=== PATIENT | female | born 1940 | race Caucasian/White ===

== ENCOUNTER 2017-07-06 10:47 | Outpatient (CLI) | payer MEDICARE ==
--- NOTE | 2017-07-06 11:33 | MMO ---
BILATERAL SCREENING MAMMOGRAM: DATE: 07/06/17 HISTORY: 76-year-old female for screening mammography. COMPARISON: 01/06/16, 12/16/14, 12/13/13, 12/12/12. FINDINGS: Bilateral MLO and CC views of the breasts show scattered fibroglandular breast tissue. Benign-appear ing calcifications are seen in both breasts. There is no evidence of suspicious mass, suspicious clu ster of microcalcifications, or area of architectural distortion. Interpretation of this mammogram was performed with the assistance of computer-aided detection. IMPRESSION: BIRADS 2: Benign Finding(s) Annual screening mammography is recommended. POS: [facility]
== END 2017-07-06 10:48 | disposition home or self-care (01) ==
LOC: SCSMAMMO 10:47
PROVIDERS: ATTEND Internal Medicine
DX: Z12.31 Encounter for screening mammogram for malignant neoplasm of breast (principal)
CPT/HCPCS: 77067; G0202

== ENCOUNTER 2018-05-01 15:19 | Outpatient (CLI) | payer MEDICARE, OTHER ==
[~2018-05-01 15:19] MED LIST: Iopamidol 370 76% 100 ML VIAL ONE
--- NOTE | 2018-05-01 17:13 | CT ---
CTA HEAD WITH AND WITHOUT CONTRAST: HISTORY: Stroke. Dizziness. Syncope. TECHNIQUE: Noncontrast enhanced CT images of the brain obtained, followed by contrast enhanced CTA images of the brain and carotid arteries, and 2D and 3D reconstructed images of the carotid and intracranial struc tures obtained. FINDINGS: Noncontrast enhanced CT images demonstrate some heterogeneity noted in the left temporal occipital re gion. This area demonstrates heterogeneous enhancement on the contrast enhanced images and is concerning fo r a possible left temporal occipital enhancing mass. Correlation with MRI is recommended. The aortic arch is unremarkable. The right brachiocephalic artery, as well as the right and left com mon carotid arteries are unremarkable. Normal flow is seen in the internal carotid arteries bilatera lly. Normal flow is seen in the right and left vertebral arteries. The basilar artery is patent. Good flow is seen in the right and left middle cerebral arteries, as well as the anterior cerebral ar randa and the posterior cerebral arteries. IMPRESSION: Area of heterogeneous enhancement in the left temporal occipital region. Malignancy cannot be exclud ed. Correlate with pre and post contrast enhanced magnetic resonance images of the brain. POS: [facility]
== END 2018-05-01 15:20 | disposition home or self-care (01) ==
LOC: CT 15:19
PROVIDERS: ATTEND Neurological Surgery
DX: I63.9 Cerebral infarction, unspecified (principal); R93.0 Abnormal findings on diagnostic imaging of skull and head, not elsewhere classified
CPT/HCPCS: 70496; 70498; 82565

== ENCOUNTER 2018-06-06 13:43 | Outpatient (CLI) | payer MEDICARE, OTHER ==
[~2018-06-06 13:43] MED LIST changes: +Gadobenate Dimeglumine 529 MG/1 ML (20ML VIAL) ONE; -Iopamidol 370 76% 100 ML VIAL ONE
--- NOTE | 2018-06-06 16:37 | MRI ---
BRAIN MRI WITH AND WITHOUT CONTRAST 06/06/18 CLINICAL INDICATIONS: History of dizziness and stroke. Abnormal, heterogeneous density documented on prior CT angiogram. Ex amination with recommendations for followup brain MRI. FINDINGS: There is diffuse abnormal signal, with resultant morphologic distortion and effacement of regional co rtex of the left temporal and left occipital lobes. There is marked heterogeneous, irregular, multifo leann enhancement of this region with internal areas of nonenhancement compatible with necrosis, and kulkarni rrounded by multiple areas of satellite nodularity. A separate region of cortical based enhancement i nvolves the posteromedial left occipital lobe abutting the posterior aspect of the interhemispheric f efrain and the superior sagittal sinus. The mass is infiltrating in morphology as well as multifocal as discussed above making discrete measurement perimeters difficult to obtain, although does occupy the near entirety of the AP length of the left temporal lobe with relative sparing of the anterior pole a nd the lateral and posterior periphery of the temporal lobe, and thus, giving its preferential medial involvment of the temporal lobe, this does result in effacement of the temporal horn of the left lat eral ventricle, and therefore transependymal spread of malignancy is likely present on the bases of t his exam. There is no significant shift of the midline. No obstructive hydrocephalus. No hemorrhagic susceptibility. Multifocal areas of restricted diffusion are present which conform to the above descr ibed abnormal areas of tumoral enhancement. IMPRESSION: Abnormal infiltrative, heterogeneously enhancing mass primarily situated at the medial left temporal lobe and involving the left occipital lobe, most consistent with high grade malignancy, such as gliob lastoma multiforme. POS: [facility]
== END 2018-06-06 13:44 | disposition home or self-care (01) ==
LOC: TBSIIMAG 13:43
PROVIDERS: ATTEND Neurological Surgery
DX: I63.9 Cerebral infarction, unspecified (principal); R22.0 Localized swelling, mass and lump, head
CPT/HCPCS: 70553; 82565; A9579

== ENCOUNTER 2018-06-12 07:05 | Inpatient (IN) | payer MEDICARE, OTHER ==
[2018-06-12 07:56] LABS: #Basophils 0.1 thou/uL (0.0-0.2); #Eosinphils 0.1 thou/uL (0.0-0.7); #Lymphocytes 1.5 thou/uL (1.20-3.40); #Monocytes 0.7 thou/uL (0.11-0.59); #Neutrophils 5.2 thou/uL (1.40-6.50); %Basophils 0.7 % (0.0-1.0); %Eosinophils 0.8 % (0.0-10.0); %Lymphocytes 20.3 % (21.0-51.0); %Monocytes 9.1 % (0.0-10.0); %Neutrophils 69.1 % (42.0-75.0); Hemoglobin 15.1 g/dL (12.0-16.0); Mean Corpuscular HGB CONC 31.1 g/dL (32.0-36.0); Mean Corpuscular Hemoglobin 28.4 pg (27.0-31.0); Mean Corpuscular Volume 91.1 fL (78.0-98.0); Mean Platelet Volume 6.8 fL (7.4-10.4); Platelet Count 287 thou/uL (130-400); RBC Distribution Width 11.6 % (11.5-14.5); Red Blood Cell (RBC) Count 5.32 mill/uL (4.20-5.40); White Blood Cell (WBC) Count 7.5 thou/uL (4.8-10.8)
[2018-06-12 08:26] LABS: Anion Gap 13 mmol/L (10-20); BUN (Urea Nitrogen) 16 mg/dL (9.8-20.1); Calc. Creatinine Clearance 64 mL/min (70-130); Calcium 9.6 mg/dL (7.8-10.44); Carbon Dioxide 25 mmol/L (23-31); Chloride 106 mmol/L (98-107); Estimated GFR-MDRD 66; Glucose 120 mg/dL (83-110); Potassium 3.5 mmol/L (3.5-5.1); Sodium 140 mmol/L (136-145)
[2018-06-12] MEDS ORDERED: Bacitracin Zinc Ointment 30 gm TUBE ONE (08:36)
[2018-06-12] MEDS ORDERED: Fentanyl 100 MCG/2 ML VIAL ONE (08:47)
[2018-06-12] MEDS ORDERED: Midazolam HCl 2 mg/2 ml Vial ONE (08:47)
[2018-06-12] MEDS ORDERED: CEFAZOLIN/Water 2 GM/20 ML SYRINGE ONE (08:53)
[2018-06-12] MEDS ORDERED: Ondansetron HCl/PF 4 MG/2 ML Vial IVP PRN ×2 (10:41→12:39)
[2018-06-12] MEDS ORDERED: Promethazine HCl 25 MG/ML VIAL IM PRN ×2 (10:41→12:39)
[2018-06-12] MEDS ORDERED: Promethazine HCl 25 MG/ML VIAL SLOW IVP PRN (10:41)
--- NOTE | 2018-06-12 10:59 | OP ---
DATE OF PROCEDURE: 06/12/2018 SURGEON: Chava Palomino M.D. NURSE COLLEGE: Mikaela Walker PROCEDURE: Left temporoparietal brain biopsy, stereotactic navigation. PROCEDURE IN DETAIL: The patient was brought to the operating room and intubated. She was positione d in the right lateral decubitus position with the head fixed in the john head mechanic, exposing the left temporal region. Using the stereotactic navigation system, we registered appropriately and ninfa n our approach and carter hole. A linear incision was made and a bur hole placed in the left temporal region. Using stereotactic navigation, we placed a stereotactic needle to the planned target in the tumor. One specimen was sent for frozen section suggesting high grade glioma, four additional specim ens were sent for permanent pathologic examination. Irrigation was performed and no bleeding was daniela ntified. The needle was removed and the scalp was closed in anatomic layers.
[2018-06-12] MEDS ORDERED: hydrALAZINE 20 MG/ML VIAL SLOW IVP PRN (12:39)
[2018-06-12] MEDS ORDERED: Promethazine 25 MG TAB PO PRN (12:39)
[2018-06-12] MEDS ORDERED: Acetaminophen 325 MG TAB PO PRN (12:39)
[2018-06-12] MEDS ORDERED: Docusate 100 MG CAP PO PRN (12:39)
[2018-06-12] MEDS ORDERED: diphenhydrAMINE 50 MG CAP PO PRN (12:39)
[2018-06-12] MEDS ORDERED: HYDROcodone/Acetaminophen 10/325 mg Tablet PO PRN ×2 (12:39)
[2018-06-12] MEDS ORDERED: Labetalol HCl 100 MG/20 ML VIAL SLOW IVP PRN (12:39)
[2018-06-12] MEDS ORDERED: diphenhydrAMINE 50 MG/ML VIAL IVP PRN (12:39)
[2018-06-12] MEDS ORDERED: Mag-Al 1200 mg/1200 mg/30 ML UDCUP PO PRN (12:39)
[2018-06-12] MEDS ORDERED: Promethazine HCl 12.5 MG SUPP PR PRN (12:42)
[2018-06-12] MEDS ORDERED: Morphine 4 MG/ML VIAL SLOW IVP PRN (12:46)
[2018-06-12] MEDS: niMODipine 30 MG CAP PO SCH ×3 (13:05→20:00)
--- NOTE | 2018-06-12 14:20 | PRG ---
DATE OF SERVICE: 06/12/2018 PRIMARY CARE PHYSICIAN: Luke Baeza MD SUBJECTIVE: The patient denies any new complaints at this time. She underwent a left temporoparieta l brain biopsy. She denies any chest discomfort, shortness of breath, palpitations or new focal defi cit. Her daughter, Anne is at the bedside. PAST MEDICAL HISTORY: 1. Hypertension. 2. Hyperlipidemia. 3. Anxiety, depression. 4. Recently diagnosed brain tumor. PAST SURGICAL HISTORY: 1. Hysterectomy. 2. Cholecystectomy. CURRENT MEDICATIONS: Reviewed. OBJECTIVE: VITAL SIGNS: The patient is afebrile with a blood pressure of 136/62 in the PACU with heart rate of 90, O2 saturation 100% on room air. GENERAL: A 77-year-old female in no apparent distress. LUNGS: Clear to auscultation bilaterally, no wheezing, rales or rhonchi. HEART: S1, S2 present. Regular rate and rhythm. ABDOMEN: Soft, bowel sounds present. EXTREMITIES: No edema or calf tenderness. NEUROLOGIC: Grossly nonfocal. LABORATORY FINDINGS: 1. EKG by my review showed sinus rhythm with left axis deviation. 2. CBC showed WBC 7.5 with hemoglobin 15.1, hematocrit 48.4, platelet 287. Chemistries showed sodiu m 140, potassium 3.5, chloride 106, bicarbonate 25, BUN 16, creatinine 0.84. 3. MRI of the brain last week showed a left temporal lobe brain mass, most consistent with high grad e malignancy. IMPRESSION: 1. Status post left temporoparietal brain biopsy. 2. Hypertension. We will reduce Toprol dose to 25 mg daily while on nimodipine. We will also add p .r.n. antihypertensives. 3. Hyperlipidemia. We will continue Zetia. 4. Anxiety, depression. We will continue escitalopram 10 mg daily. 5. Chronic kidney disease stage 2. 6. Code status: FULL CODE. Surrogate decision maker: The patient makes her own decision with the help of her family. Thank you Dr. Palomino for this consultation. We will follow with you.
[2018-06-12 14:33] VITALS: BMI 27.5
[2018-06-12] MEDS ORDERED: PROPOFOL 200 MG/20 ML VIAL ONE (14:35)
[2018-06-12] MEDS ORDERED: ePHEDrine/0.9% NaCl/PF SYRINGE 50 mg/10 ml ONE (14:35)
[2018-06-12] MEDS ORDERED: Lidocaine 1% PF 5 ML VIAL ONE (14:35)
[2018-06-12] MEDS ORDERED: PHENYLEPHRINE-NS 100 MCG/ML 10 ML SYRINGE ONE (14:35)
[2018-06-12] MEDS ORDERED: Glycopyrrolate 0.2 MG/ML 5 ML SYRINGE ONE (14:35)
--- NOTE | 2018-06-12 15:39 | EKG ---
Test Reason : PREOP Blood Pressure : / mmHG Vent. Rate : 070 BPM Atrial Rate : 070 BPM P-R Int : 160 ms QRS Dur : 072 ms QT Int : 390 ms P-R-T Axes : 016 -35 020 degrees QTc Int : 421 ms Normal sinus rhythm Left axis deviation Inferior infarct , age undetermined Abnormal ECG Confirmed by KARLY CORADO, DR. Lester ([id number]) on 06/12/2018 3:39:33 PM Referred By: BRIANNE Confirmed By:DR. Trevon BRANDT MD
[2018-06-12] MEDS: CEFAZOLIN/Water 2 GM/20 ML SYRINGE SLOW IVP SCH (17:45)
[2018-06-12] MEDS: Sodium Chloride 0.9% 1,000 ML IV SCH (17:46)
[2018-06-13] MEDS: niMODipine 30 MG CAP PO SCH ×3 (01:04→10:44)
[2018-06-13] MEDS: CEFAZOLIN/Water 2 GM/20 ML SYRINGE SLOW IVP SCH (01:04)
[2018-06-13] MEDS: Sodium Chloride 0.9% 1,000 ML IV SCH (05:29)
--- NOTE | 2018-06-13 06:43 | DIS ---
DATE OF ADMISSION: 06/12/2018 DATE OF DISCHARGE: 06/13/2018 ATTENDING PHYSICIAN: Dr. Chava Palomino [facility] COURSE: The patient is a 77-year-old female evaluated recently in our office for progressive cognitive decline. Her MRI showed a large left temporal occipital mass was unclear fiona schneider. The patient was admitted yesterday and underwent left temporal stereotactic brain biopsy for fu rther evaluation of this lesion. Following the procedure she was transitioned to the ICU where she w as monitored closely overnight. Overnight, she had remained stable and had no postoperative complica tions. I am seeing the patient at the bedside. She is awake, alert, comfortable and requesting to g o home. The patient is sitting comfortably in bed in no acute distress. PERRLA. Extraocular movements intact . No focal neurologic deficits are appreciated. We will plan to dismiss the patient to home later today. I discussed home care and will plan to foll ow up with the patient on prescheduled appointment on 06/26/2018. I provided her with p.r.n. script for [facility].
[2018-06-13 07:46] VITALS: TEMP 98.8
--- NOTE | 2018-06-13 08:55 | CT ---
PRELIMINARY REPORT/[facility]/EMERGENTY AFTER-HOURS PROCEDURE CT Head Without Intravenous Contrast CLINICAL HISTORY: 77 years old, female; Screening exam; Prior surgery; Surgery date: Post-operative (0-2 days); Surgery type: S/P craniotomy TECHNIQUE: Axial computed tomography images of the head/brain without intravenous contrast. COMPARISON: CTA Angio Head W WO Con 05/01/2018 3:54 PM FINDINGS: Brain: Again seen is a heterogeneous mass involving the medial left temporal lobe and occipital suspi cious for tumor as seen on the previous exam. There are now punctate foci of air within the mass post eriorly and along the anterior margin in the temporal lobe related to the recent biopsy. There is moderate edema in the left temporal and occipital lobes. There is effacement of sulci and pa rtial effacement of left lateral ventricle. No other significant mass effect or midline shift. No int racranial hemorrhage. No significant white matter disease. Ventricles: See above. Bones/joints: There has been a small carter hole placed in the left temporal bone. No acute fracture. Soft tissues: There are surgical stephenie in the left temporal scalp. Vasculature: Carotid atherosclerotic calcification. Sinuses: Unremarkable as visualized. No acute sinusitis. Mastoid air cells: Unremarkable as visualized. No mastoid effusion. Orbits: The patient has had bilateral lens replacement surgery. IMPRESSION: Evidence of recent or old and probable biopsy. Correlate clinically. No acute hemorrhage. Thank you for allowing us to participate in the care of your patient. Dictated and Authenticated by: Akash Silva MD 06/13/2018 4:36 AM Central Time ([place] & [place]) FINAL REPORT CT BRAIN: HISTORY: Brain mass post biopsy. FINDINGS: Final report. Preliminary exam was performed by [facility]. I concur with the dictation from [facility]. Left parietotemporal mass is again seen. Postsu rgical biopsy changes noted. No evidence of acute intracranial hemorrhage is seen. IMPRESSION: I concur with the dictation from [facility]. POS: [facility]
[2018-06-13] MEDS ORDERED: Prevnar 13-Val Conj/PF 0.5 ML SYRINGE IM ONE (09:00)
[2018-06-13] MEDS ORDERED: Ezetimibe 10 MG TAB PO SCH (09:00)
[2018-06-13] MEDS ORDERED: Escitalopram Oxalate 10 mg Tablet PO SCH (09:00)
== END 2018-06-13 11:30 | disposition home or self-care (01) | DRG 55 ==
LOC: SURG A 07:05 → CCU 10:58 → EDSTATUS 12:21
PROVIDERS: ADMIT Neurological Surgery; ATTEND Neurological Surgery
PROC: 00B03ZX Excision of Brain, Percutaneous Approach, Diagnostic (ICD-10-PCS; principal; 2018-06-12)
DX: C71.9 Malignant neoplasm of brain, unspecified (principal); R41.81 Age-related cognitive decline; E78.5 Hyperlipidemia, unspecified; F41.9 Anxiety disorder, unspecified; F32.9 Major depressive disorder, single episode, unspecified; I12.9 Hypertensive chronic kidney disease with stage 1 through stage 4 chronic kidney disease, or unspecified chronic kidney disease; N18.2 Chronic kidney disease, stage 2 (mild)
CPT/HCPCS: 36415; 70450; 80048; 85025; 88307; 88331; 93005; 93010; J2001; J2250; J2704; J3010

== ENCOUNTER 2018-06-14 16:48 | Emergency (ER) | payer MEDICARE, OTHER ==
[2018-06-14 17:14] LABS: #Eosinphils 0.1 thou/uL (0.0-0.7); #Lymphocytes 2.1 thou/uL (1.20-3.40); #Neutrophils 6.4 thou/uL (1.40-6.50); %Basophils 0.4 % (0.0-1.0); %Eosinophils 1.1 % (0.0-10.0); %Lymphocytes 21.3 % (21.0-51.0); %Monocytes 10.1 % (0.0-10.0); %Neutrophils 67.1 % (42.0-75.0); Hemoglobin 15.3 g/dL (12.0-16.0); Mean Corpuscular HGB CONC 32.5 g/dL (32.0-36.0); Mean Corpuscular Hemoglobin 29.5 pg (27.0-31.0); Mean Corpuscular Volume 90.9 fL (78.0-98.0); Mean Platelet Volume 7.1 fL (7.4-10.4); Platelet Count 266 thou/uL (130-400); RBC Distribution Width 11.7 % (11.5-14.5); White Blood Cell (WBC) Count 9.6 thou/uL (4.8-10.8)
--- NOTE | 2018-06-14 17:26 | RAD ---
PORTABLE AP CHEST: Date: 06/14/18 HISTORY: Altered mental status. COMPARISON: None available. FINDINGS: Cardiac silhouette is magnified by projection, but is mildly enlarged. Pulmonary vasculature is withi n normal limits. There is elevation of the right hemidiaphragm with mild volume loss at the right fernando g base. The lungs are otherwise clear. Vascular calcifications are seen in the thoracic aorta. Degene rative changes are noted in the spine. IMPRESSION: 1. Cardiomegaly without overt CHF. 2. Mild elevation right hemidiaphragm with atelectasis right lung base. 3. No acute cardiopulmonary process. POS: [facility]
[2018-06-14 17:31] LABS: Bilirubin Negative (Negative); Blood, Urine Negative (Negative); Clarity CLOUDY (Clear); Glucose, Urine (Dipstick) Negative (Negative); Leukocyte Negative (Negative); Nitrite Negative (Negative); Protein, Urine (Dipstick) Negative (Neg-Trace); Specific Gravity, Urine 1.022 (1.002-1.036); Urobilinogen 0.2 mg/dL (0.2-1.0); pH, Urine 5.5 (5.0-9.0)
[2018-06-14 17:35] LABS: ALT (SGPT) 16 U/L (8-55); AST (SGOT) 12 U/L (5-34); Albumin 4.1 g/dL (3.4-4.8); Alkaline Phosphatase 70 U/L (40-150); Anion Gap 13 mmol/L (10-20); BUN (Urea Nitrogen) 15 mg/dL (9.8-20.1); Bilirubin, Total 0.6 mg/dL (0.2-1.2); Calc. Creatinine Clearance 0 mL/min (70-130); Calcium 9.9 mg/dL (7.8-10.44); Carbon Dioxide 23 mmol/L (23-31); Chloride 107 mmol/L (98-107); Estimated GFR-MDRD 65; Globulin 3.6 g/dL (2.4-3.5); Glucose 142 mg/dL (83-110); Potassium 3.2 mmol/L (3.5-5.1); Protein, Total 7.7 g/dL (6.0-8.3); Sodium 140 mmol/L (136-145)
[2018-06-14 17:39] LABS: CKMB 0.7 ng/mL (0-6.6); Troponin I Less than 0.010 ng/mL (< 0.028)
--- NOTE | 2018-06-14 17:54 | CT ---
NONCONTRAST CT HEAD: Date: 06/14/18 HISTORY: Altered mental status. Patient discharged 1 day ago after biopsy of brain lesion. Patient has intermi ttent confusion today and mumbling words. COMPARISON: 06/13/18. FINDINGS: The previously described infiltrating mass involving the left temporal and occipital lobes is again s een and unchanged and compared to the prior study. There is persistent effacement of left cerebral kulkarni lci, as well as the occipital horn and trigone of the left lateral ventricle. This infiltrative mass again appears to occupy the entire length of the left temporal lobe. The punctate focus of pneumoceph alus in the left temporal and parietal lobes are no longer visualized. Bur hole in the left temporal bone is again seen, with overlying skin clips stable in position. There is a tiny left subdural colle ction now seen in the left anterior frontal region, which may have been present on the prior study, b ut more conspicuous on today's exam. The greatest transverse dimension along the inner table of the l eft anterior frontal bone measures 4.0 mm. There is mild shift of the midline structures to the right measuring 2-3 mm. No acute cortical infarction is visualized. No other interval change. IMPRESSION: 1. Previously noted heterogeneous infiltrative mass-like structure involving the majority of the lef t temporal lobe, as well as the left parietooccipital lobe is again seen, and overall similar to the prior exam, with adjacent areas of vasogenic edema. 2. Stable mass effect, as well as slight shift of the midline structures to the right. 3. Resolution of pneumocephalus in the left cerebral hemisphere noted on prior exam likely related t o prior biopsy. 4. Small left subdural collection\hemorrhage, which was probably also present on prior exam, but mor e conspicuous on the current study. 5. No acute cortical infarction or new area of hemorrhage is identified. POS: [facility]
[2018-06-14] MEDS ORDERED: Dexamethasone 4 mg/ml Vial ONE (18:47)
--- NOTE | 2018-06-15 02:13 | CON ---
DATE OF CONSULTATION: 06/14/2018 ATTENDING PHYSICIAN: Chava Palomino M.D. HISTORY OF PRESENT ILLNESS: The patient is a 77-year-old female known to us for recent evaluation of left temporal mass. The patient has had progressive cognitive decline over the past few months which prompted imaging and finding of this mass. Etiology of the mass was unclear. Therefore, patient underwent stereotactic brain biopsy by us on 06/12/2018. Following her biopsy, she spent one night in the ICU, remained cognitively at her baseline the following day and was discharged to home. Since her return home, the family reports over the last 24 hours the patient has become significantly more confused. At times, she is unable to tell them her name and has very incoherent speech which I would describe as word salad. They report she will follow some commands, but considering this progressively worsening altered mental status we recommended that she go to the ER for further evaluation. Upon arrival to the ER, the patient underwent noncontrast CT head, which shows a small left subdural hematoma over the biopsy site as well as large left temporal occipital mass as previously seen on prior scans. There is surrounding vasogenic edema and some mass effect as well as midline shift from the mass. This appears to have progressed slightly since her prior scans. PHYSICAL EXAMINATION: VITAL SIGNS: Blood pressure is 147/76, pulse is 86, respiration rate is 14, temperature is 99.3, and patient is 97% on room air. CONSTITUTIONAL: The patient is awake. She opens her eyes to voice, but is answering questions inappropriately. HEENT: Normocephalic, atraumatic. EYES: PERRLA. Extraocular movements intact. ENT: Oral mucosa is pink, intact and moist. NECK: Nontender to palpation. Free active range of motion, no meningismus or nuchal rigidity. RESPIRATORY: The patient has symmetric chest expansion. Normal respiratory rate. CARDIOVASCULAR: Regular rate and rhythm. MUSCULOSKELETAL: She is moving all 4 spontaneously and does not appear to have any focal motor weakness. No obvious deformities or trauma. NEUROLOGIC: The patient is not oriented to person, place or time. She is not answering questions appropriately. Her speech describes word salad. ASSESSMENT AND PLAN: The patient appears to have progression of her left temporal mass. We are awaiting final pathology to formulate a plan that will likely include Radiation Oncology. The patient has been treated with 10 mg of IV Decadron in the emergency department. I have recommended admission for continued IV steroids as well as coordination for Radiation Oncology and possible need for placement vs palliative care. I feel that considering the patient's current state she would be a safety risk to return home. We discussed the possible inpatient stay, the patient did become slightly agitated and did seem to appear to understand what I was saying. She was adamantly against any admission to the hospital. Furthermore, her is also very opposed to any new admissions to the hospital. He understands the risk of taking the patient home such as worsening of her condition, increased vasogenic edema which could lead to possible herniation even . I also offered to speak with the patient's daughter Licha who has been involved in the care; however, both the patient and the declined any further conversations with the patient's daughter at this time. The expressed understanding of all risks for patient to return home. We provided a script for Decadron 2 mg which the patient can take t.i.d. She has scheduled followup on 06/26/2018 with our office and hopefully we will have the final pathology results at that time to formulate a final plan. I have discussed reasons for return and also provided them with my refinery operator alkylation information if they need for any after hour events. RIVERA
== END 2018-06-14 19:13 | disposition home or self-care (01) ==
LOC: ERS 16:48
DX: R41.82 Altered mental status, unspecified (principal); E78.5 Hyperlipidemia, unspecified
CPT/HCPCS: 51701; 70450; 71045; 80053; 81003; 82553; 83605; 84484; 85025; 93005; 96374; A4353; J1100